=== PATIENT | male | born 1995 | race Caucasian/White ===

== ENCOUNTER 2017-07-20 13:04 | Emergency (ER) | payer OTHER ==
[2017-07-20] MEDS ORDERED: POLYSPORIN TOPICAL OINTMENT 15GM As Ordered (15:22)
== END 2017-07-20 15:44 | disposition home or self-care (01) ==
LOC: M ED 13:04
DX: S61.411A Laceration without foreign body of right hand, initial encounter (principal); S60.221A Contusion of right hand, initial encounter; Y04.0XXA Assault by unarmed brawl or fight, initial encounter; Y92.511 Restaurant or cafe as the place of occurrence of the external cause
CPT/HCPCS: 73130